=== PATIENT | female | born 1945 | race Caucasian/White ===

== ENCOUNTER 2017-01-12 21:32 | Inpatient (IN) | payer MEDICARE, OTHER ==
[~2017-01-12] VITALS: Ht 165.1 cm; Wt 98.5 kg
[~2017-01-12 21:32] MED LIST: ASPI-515 PO; DILT180C53 PO; FLUO20CA8 PO; HYDR-3237 PO; LEVO25CA2 PO; METO-93; [UNRECOGNIZED DRUG - REMARK] PO
[2017-01-12] MEDS ORDERED: DILT240C80 PO (21:41)
[2017-01-12] MEDS ORDERED: ONDANSETRON 2MG/ML, 2ML IVPush ONE (22:00)
[2017-01-12] MEDS ORDERED: SODIUM CHLORIDE FLUSH 10ML SYR IVF ONE (22:00)
[2017-01-12] MEDS ORDERED: SODIUM CHLORIDE 0.9% 1,000ML IVBOLUS ONE (22:00)
[2017-01-12] MEDS ORDERED: ONDANSETRON 2MG/ML, 2ML ONE (22:14)
[2017-01-12 22:59] LABS: HEMATOCRIT 43.7 % (34.6-47.8); HEMOGLOBIN 14.7 g/dL (11.7-16.4)
[2017-01-12 23:07] LABS: ASPARTATE AMINO TRANSFERASE 14 U/L (15-37); BLOOD UREA NITROGEN 18 mg/dL (7-18)
[2017-01-12 23:12] LABS: IS PT STATUS REG ER OR PRE ER? YES
[2017-01-12] MEDS ORDERED: HEPARIN 5,000 UNITS/ML, 1ML IV ONE (23:30)
[2017-01-12] MEDS ORDERED: HEPARIN 25,000 UNITS/500ML PMX 500 ML IV PRN (23:30)
[2017-01-12] MEDS ORDERED: AMIODARONE 150 MG in DEXTROSE 5% 100 ML IV ONE (23:30)
[2017-01-12] MEDS ORDERED: AMIODARONE 900 MG in DEXTROSE 5% 482 ML IV PRN (23:30)
[2017-01-12] MEDS ORDERED: FILTER 0.22 MICRON IV PRN (23:30)
[2017-01-12] MEDS ORDERED: HEPARIN 5,000 UNITS/ML, 1ML IV PRN (23:30)
[2017-01-13] MEDS ORDERED: TEMAZEPAM 15 MG CAPSULE PO PRN (00:30)
[2017-01-13] MEDS ORDERED: POLYETHYLENE GLYCOL 17 GM PACKET PO PRN (00:30)
[2017-01-13] MEDS ORDERED: ACETAMINOPHEN 325 MG TABLET PO PRN (00:30)
[2017-01-13 01:16] VITALS: BP 134/74
[2017-01-13 02:00] VITALS: BP 98/62
[2017-01-13 06:36] LABS: IS PT STATUS REG ER OR PRE ER? NO
[2017-01-13] MEDS: DILTIAZEM 240 MG CAP.ER.24H PO SCH (08:10)
[2017-01-13] MEDS: LEVOTHYROXINE 25 MCG TABLET PO SCH (08:11)
[2017-01-13 08:29] VITALS: BP 114/70
[2017-01-13] MEDS ORDERED: MIDAZOLAM 1 MG/ML, 5ML ONE (09:55)
[2017-01-13] MEDS ORDERED: FENTANYL PF 100 MCG/2ML ONE (09:56)
[2017-01-13] MEDS ORDERED: MIDAZOLAM 1 MG/ML, 2ML IV ONE (10:00)
[2017-01-13] MEDS ORDERED: FENTANYL PF 100 MCG/2ML IV ONE (10:00)
[2017-01-13] MEDS: APIXABAN 5 MG TABLET PO SCH ×2 (11:46→20:31)
[2017-01-13 11:47] LABS: IS PT STATUS REG ER OR PRE ER? NO
[2017-01-13 13:14] VITALS: BP 118/73
[2017-01-13 19:50] VITALS: BP 128/55
[2017-01-14 04:19] VITALS: BP 132/59
[2017-01-14 05:14] LABS: HEMATOCRIT 39.7 % (34.6-47.8); HEMOGLOBIN 13.4 g/dL (11.7-16.4); WHITE BLOOD COUNT 5.6 x10^3/uL (3.4-10)
[2017-01-14 05:18] LABS: BLOOD UREA NITROGEN 14 mg/dL (7-18)
[2017-01-14] MEDS: LEVOTHYROXINE 25 MCG TABLET PO SCH (06:16)
[2017-01-14] MEDS: APIXABAN 5 MG TABLET PO SCH (07:58)
[2017-01-14 07:59] VITALS: BP 137/78
[2017-01-14] MEDS: DILTIAZEM 240 MG CAP.ER.24H PO SCH (08:57)
[2017-01-14] MEDS ORDERED: APIX5TAB PO (13:14)
[2017-01-14 15:31] VITALS: BP 117/68
== END 2017-01-14 15:42 | disposition home or self-care (01) | DRG 309 ==
LOC: ED 22:39 → EDIP 23:27 → 5SO 01-13 00:28
PROVIDERS: ADMIT Internal Medicine; ATTEND Internal Medicine
PROC: 5A2204Z Restoration of Cardiac Rhythm, Single (ICD-10-PCS; principal; 2017-01-13)
DX: I48.0 Paroxysmal atrial fibrillation (principal); D68.69 Other thrombophilia; I11.9 Hypertensive heart disease without heart failure; F33.0 Major depressive disorder, recurrent, mild; I45.10 Unspecified right bundle-branch block; E03.9 Hypothyroidism, unspecified; Z80.9 Family history of malignant neoplasm, unspecified; Z90.10 Acquired absence of unspecified breast and nipple; Z90.2 Acquired absence of lung [part of]; Z88.6 Allergy status to analgesic agent; Z88.2 Allergy status to sulfonamides; Z88.8 Allergy status to other drugs, medicaments and biological substances; Z85.118 Personal history of other malignant neoplasm of bronchus and lung; Z85.3 Personal history of malignant neoplasm of breast; Z87.891 Personal history of nicotine dependence
CPT/HCPCS: 36415; 71020; 80048; 80053; 84436; 84443; 84484; 85025; 85379; 85520; 93005; 93306; 96361; 96374; 96375; J1644; J2250; J2405; J3010; J0282; J7030

== ENCOUNTER → 2017-01-31 | Outpatient (CLI) | payer MEDICARE, OTHER ==
[~2017-01-31] MED LIST changes: +APIX5TAB PO; +DILT240C80 PO; +REGADENOSON 0.4 MG/5 ML SYRINGE ONE
== END | disposition home or self-care (01) ==
LOC: CFH 08:30
PROVIDERS: ATTEND Internal Medicine Cardiovascular Disease
DX: I48.91 Unspecified atrial fibrillation (principal); I10 Essential (primary) hypertension; R07.9 Chest pain, unspecified
CPT/HCPCS: 78452; 93017; A9502; J2785

== ENCOUNTER 2017-05-25 06:18 | Observation (INO) | payer MEDICARE, OTHER ==
[2017-05-22 10:20] VITALS: BP 148/69
[2017-05-22 10:53] LABS: BASOPHILS # (AUTO) 0.02 x10^3/uL (0-0.1); BASOPHILS % (AUTO) 0 % (0-1); EOSINOPHILS # (AUTO) 0.06 x10^3/uL (0-0.4); EOSINOPHILS % (AUTO) 1 % (1-7); LYMPHOCYTES # (AUTO) 1.59 x10^3/uL (1-3.4); LYMPHOCYTES % (AUTO) 25 % (22-44); MD NO; MEAN CORPUSCULAR HEMOGLOBIN 33.5 pg (27.0-34.8); MEAN CORPUSCULAR HGB CONC 33.7 g/dL (32.4-35.8); MEAN CORPUSCULAR VOLUME 99.4 fL (80-100); MEAN PLATELET VOLUME 8.2 fL (7.4-10.4); MONOCYTES # (AUTO) 0.35 x10^3/uL (0.2-0.8); MONOCYTES % (AUTO) 6 % (2-9); NEUTROPHILS # (AUTO) 4.33 x10^3/uL (1.8-6.8); NEUTROPHILS % (AUTO) 68 % (42-75); PLATELET COUNT 255 x10^3/uL (130-400); RED CELL DISTRIBUTION WIDTH 13.2 % (9.6-15.2)
[2017-05-22 11:02] LABS: INTERNATIONAL NORMALIZED RATIO 0.93 (0.93-1.1); PROTHROMBIN TIME 9.7 Seconds (9.6-11.5)
[2017-05-22 11:06] LABS: ANION GAP 5 mmol/L (5-15); CALCIUM 8.9 mg/dL (8.5-10.1); CHLORIDE 106 mmol/L (98-107); CREATININE 0.97 mg/dL (0.55-1.02)
[~2017-05-25] VITALS: Ht 165.1 cm; Wt 83.9 kg
[~2017-05-25 06:18] MED LIST changes: +B12/1TAB2 PO; +CYAN1TAB29 PO; +DILT120T4 PO; +FLUO20TA PO; +LEVO75TA PO; -REGADENOSON 0.4 MG/5 ML SYRINGE ONE
[2017-05-25] MEDS ORDERED: SODIUM CHLORIDE 0.9% 1,000 ML IV SCH (06:32)
[2017-05-25] MEDS ORDERED: FENTANYL PF 100 MCG/2ML ONE (06:38)
[2017-05-25] MEDS ORDERED: MIDAZOLAM 1 MG/ML, 2ML ONE ×2 (06:38→07:24)
[2017-05-25] MEDS ORDERED: CEFAZOLIN PMX 1GM/50ML 50 ML ONE (06:38)
[2017-05-25] MEDS ORDERED: CEFAZOLIN 1,000 MG ONE (06:38)
[2017-05-25] MEDS ORDERED: LIDOCAINE 2%, 20ML ONE (06:38)
[2017-05-25] MEDS ORDERED: CEFAZOLIN PMX 1GM/50ML 50 ML IVPB ONE (07:00)
[2017-05-25] MEDS ORDERED: BISACODYL 10 MG SUPP PR PRN ×2 (10:30→11:00)
[2017-05-25] MEDS ORDERED: ZOLPIDEM 5MG TABLET PO PRN ×2 (10:30→11:00)
[2017-05-25] MEDS ORDERED: ONDANSETRON 2MG/ML, 2ML IV PRN ×2 (10:30→11:00)
[2017-05-25] MEDS ORDERED: BISACODYL 5 MG EC TABLET PO PRN ×2 (10:30→11:00)
[2017-05-25] MEDS: SOTALOL 120MG TABLET PO SCH ×2 (10:38→20:01)
[2017-05-25] MEDS ORDERED: ACETAMINOPHEN 325 MG TABLET PO PRN (11:00)
[2017-05-25] MEDS ORDERED: CEFAZOLIN PMX 1GM/50ML 50 ML IVPB SCH (12:00)
[2017-05-25] MEDS: CEFAZOLIN PMX 1GM/50ML 50 ML IVPB SCH ×2 (12:37→18:18)
[2017-05-25 13:25] VITALS: BP 99/61
[2017-05-25 19:13] VITALS: BP 112/68
[2017-05-25] MEDS: SODIUM CHLORIDE FLUSH 10ML SYR IVF SCH (20:01)
[2017-05-26 00:10] VITALS: BP 114/73
[2017-05-26] MEDS: CEFAZOLIN PMX 1GM/50ML 50 ML IVPB SCH (00:25)
[2017-05-26] MEDS: ACETAMINOPHEN 325 MG TABLET PO PRN ×2 (00:30→08:54)
[2017-05-26] MEDS ORDERED: LEVOTHYROXINE 75 MCG TABLET PO SCH (06:00)
[2017-05-26 06:15] VITALS: BP 114/75
[2017-05-26] MEDS: LEVOTHYROXINE 75 MCG TABLET PO SCH (06:19)
[2017-05-26] MEDS: SOTALOL 120MG TABLET PO SCH ×2 (06:19→18:01)
[2017-05-26 07:20] VITALS: BP 116/70
[2017-05-26] MEDS: SODIUM CHLORIDE FLUSH 10ML SYR IVF SCH ×2 (08:54→21:13)
[2017-05-26 13:19] VITALS: BP 109/55
[2017-05-26 19:37] VITALS: BP 103/63
[2017-05-27 03:28] VITALS: BP 120/85
[2017-05-27 06:27] VITALS: BP 116/75
[2017-05-27] MEDS: LEVOTHYROXINE 75 MCG TABLET PO SCH (06:30)
[2017-05-27] MEDS: SOTALOL 120MG TABLET PO SCH (06:30)
[2017-05-27 07:06] VITALS: BP 128/83
[2017-05-27] MEDS: SODIUM CHLORIDE FLUSH 10ML SYR IVF SCH (08:32)
[2017-05-27] MEDS ORDERED: SOTA120T14 PO (08:33)
[2017-05-27] MEDS ORDERED: APIX5TAB PO (08:33)
== END 2017-05-27 14:05 | disposition home or self-care (01) ==
LOC: CACL 06:18 → 5SO 08:45 → CACL 10:09
PROVIDERS: ADMIT Internal Medicine Cardiovascular Disease; ATTEND Internal Medicine Cardiovascular Disease
DX: I49.5 Sick sinus syndrome (principal); I48.0 Paroxysmal atrial fibrillation; J44.9 Chronic obstructive pulmonary disease, unspecified; I74.5 Embolism and thrombosis of iliac artery; I10 Essential (primary) hypertension; E78.5 Hyperlipidemia, unspecified; E03.9 Hypothyroidism, unspecified; G47.36 Sleep related hypoventilation in conditions classified elsewhere; Z90.12 Acquired absence of left breast and nipple; Z87.891 Personal history of nicotine dependence; Z85.3 Personal history of malignant neoplasm of breast; Z85.118 Personal history of other malignant neoplasm of bronchus and lung
CPT/HCPCS: 33208; 36415; 71045; 71046; 80048; 85025; 85610; 93005; 96365; 96366; 96375; 99156; 99157; C1779; C1785; C1892; G0378; J0690; J2250; J3010; J3490

== ENCOUNTER 2017-07-04 10:31 | Day surgery (SDC) | payer MEDICARE, OTHER ==
[~2017-07-04] VITALS: Ht 165.1 cm; Wt 84.1 kg
[~2017-07-04 10:31] MED LIST changes: +SOTA120T14 PO
[2017-07-04 10:55] VITALS: BP 151/89
[2017-07-04] MEDS ORDERED: SOTA160T PO (11:08)
[2017-07-04 11:12] LABS: BASOPHILS # (AUTO) 0.02 x10^3/uL (0-0.1); BASOPHILS % (AUTO) 0 % (0-1); EOSINOPHILS # (AUTO) 0.04 x10^3/uL (0-0.4); EOSINOPHILS % (AUTO) 1 % (1-7); LYMPHOCYTES # (AUTO) 1.19 x10^3/uL (1-3.4); LYMPHOCYTES % (AUTO) 25 % (22-44); MD NO; MEAN CORPUSCULAR HEMOGLOBIN 33.3 pg (27.0-34.8); MEAN CORPUSCULAR HGB CONC 34.1 g/dL (32.4-35.8); MEAN CORPUSCULAR VOLUME 97.7 fL (80-100); MEAN PLATELET VOLUME 8.4 fL (7.4-10.4); MONOCYTES # (AUTO) 0.28 x10^3/uL (0.2-0.8); MONOCYTES % (AUTO) 6 % (2-9); NEUTROPHILS % (AUTO) 68 % (42-75); PLATELET COUNT 198 x10^3/uL (130-400); RED BLOOD COUNT 4.19 x10^6/uL (3.82-5.3); RED CELL DISTRIBUTION WIDTH 13.4 % (9.6-15.2)
[2017-07-04 11:23] LABS: ALANINE AMINOTRANSFERASE 17 U/L (12-78); ALBUMIN 3.7 g/dL (3.4-5.0); ANION GAP 9 mmol/L (5-15); CALCIUM 8.5 mg/dL (8.5-10.1); CHLORIDE 109 mmol/L (98-107); CREATININE 1.06 mg/dL (0.55-1.02)
[2017-07-04 11:25] LABS: ALKALINE PHOSPHATASE 50 U/L (45-117); BILIRUBIN,TOTAL 0.8 mg/dL (0.2-1.0); TOTAL PROTEIN 6.8 g/dL (6.4-8.2)
[2017-07-04] MEDS ORDERED: PROPOFOL 10 MG/ML, 20ML ONE (11:55)
== END 2017-07-04 12:48 ==
LOC: CACL 10:31
PROVIDERS: ATTEND Internal Medicine Cardiovascular Disease
DX: I48.91 Unspecified atrial fibrillation (principal); I10 Essential (primary) hypertension; Z98.890 Other specified postprocedural states; Z90.12 Acquired absence of left breast and nipple
CPT/HCPCS: 36415; 71046; 80053; 85025; 92960; J2704

== ENCOUNTER → 2017-11-21 | Outpatient (CLI) | payer MEDICARE, OTHER ==
[~2017-11-21] MED LIST changes: +SOTA160T PO
== END | disposition home or self-care (01) ==
LOC: CVU 06:39
PROVIDERS: ATTEND Internal Medicine Critical Care Medicine
DX: I34.0 Nonrheumatic mitral (valve) insufficiency (principal); I48.91 Unspecified atrial fibrillation; I10 Essential (primary) hypertension; E78.5 Hyperlipidemia, unspecified; Z79.82 Long term (current) use of aspirin; Z85.3 Personal history of malignant neoplasm of breast; Z85.118 Personal history of other malignant neoplasm of bronchus and lung
CPT/HCPCS: 93306

== ENCOUNTER → 2017-12-20 | Outpatient (CLI) | payer MEDICARE, OTHER ==
[~2017-12-20] MED LIST changes: +OMNIPAQUE 350 MG/ML, 100ML BOTTLE ONE
== END | disposition home or self-care (01) ==
LOC: CFH 11:52
PROVIDERS: ATTEND Internal Medicine Critical Care Medicine
DX: J43.9 Emphysema, unspecified (principal); J98.4 Other disorders of lung; Z90.12 Acquired absence of left breast and nipple; Z87.891 Personal history of nicotine dependence; Z85.3 Personal history of malignant neoplasm of breast; Z85.118 Personal history of other malignant neoplasm of bronchus and lung; Z88.2 Allergy status to sulfonamides
CPT/HCPCS: 71275; Q9967

== ENCOUNTER 2018-09-29 14:46 | Emergency (ER) | payer MEDICARE, OTHER ==
[~2018-09-29] VITALS: Ht 165.1 cm; Wt 89.1 kg
[~2018-09-29 14:46] MED LIST changes: -OMNIPAQUE 350 MG/ML, 100ML BOTTLE ONE
[2018-09-29 15:22] LABS: BASOPHILS # (AUTO) 0.02 x10^3/uL (0-0.1); BASOPHILS % (AUTO) 0 % (0-1); EOSINOPHILS # (AUTO) 0.07 x10^3/uL (0-0.4); EOSINOPHILS % (AUTO) 1 % (1-7); LYMPHOCYTES # (AUTO) 1.63 x10^3/uL (1-3.4); LYMPHOCYTES % (AUTO) 28 % (22-44); MD NO; MEAN CORPUSCULAR HEMOGLOBIN 32.6 pg (27.0-34.8); MEAN CORPUSCULAR HGB CONC 33.2 g/dL (32.4-35.8); MEAN PLATELET VOLUME 8.1 fL (7.4-10.4); MONOCYTES # (AUTO) 0.38 x10^3/uL (0.2-0.8); MONOCYTES % (AUTO) 6 % (2-9); NEUTROPHILS # (AUTO) 3.81 x10^3/uL (1.8-6.8); NEUTROPHILS % (AUTO) 64 % (42-75); PLATELET COUNT 191 x10^3/uL (130-400); RED BLOOD COUNT 4.01 x10^6/uL (3.82-5.3); RED CELL DISTRIBUTION WIDTH 13.5 % (9.6-15.2)
[2018-09-29 15:23] LABS: ALBUMIN 3.9 g/dL (3.4-5.0); ANION GAP 5 mmol/L (5-15); CALCIUM 8.6 mg/dL (8.5-10.1); CHLORIDE 106 mmol/L (98-107)
[2018-09-29 15:27] LABS: TROPONIN I < 0.015 ng/mL (0.000-0.045)
[2018-09-29] MEDS ORDERED: PROPOFOL 10 MG/ML, 20ML IVPush ONE (15:30)
[2018-09-29] MEDS ORDERED: PROPOFOL 10 MG/ML, 20ML ONE (15:35)
--- NOTE | 2018-09-29 15:45 | NUR ---
THIS IS A 73 YO FEMALE WHO PRESENTS TO THE ER C/O CHEST DISCOMFORT DESCRIBED HEAVY AND RATED 2/10, PALPITATIONS AND SOB SINCE APPROX 1300. PT HAS HX OF AFIB AND IS IN AFIV IN THE ER 90'S-110'S. PT AO X 4. PT ABLE TO SPEAK IN FULL 7-10 WORD SENTENCES BUT FEELS SOB. PT ON 2L NC HOME O2 AT ALL TIMES. SKIN PWD. AT BEDSIDE. WILL CONT TO MONITOR PT.
--- NOTE | 2018-09-29 16:11 | NUR ---
Lunch break RN: Pt set up for cardioversion. Cardiac, NIBP, SPO2 & ETCO2 monitors IP.
--- NOTE | 2018-09-29 16:42 | NUR ---
REPORT FROM KIRAN MORALES AND KIRAN BECKER. PT RESTING IN ROOM, BEING MONITORED BY KIRAN MORALES. VSS. PLAN TO DC HOME.
--- NOTE | 2018-09-29 16:43 | NUR ---
Late entry: procedural sedation w/ electrical cardioversion performed on pt. Received 2 synchronized shocks 150 then 200. Converted after second shock. Propofol 80mg IV administered by ER physician. Pt currently pain free, HR 60, paced, A&O x4. See procedural sedation paperwork for procedural notes/VS.
--- NOTE | 2018-09-29 16:45 | NUR ---
REPORT TO KIRAN FREY WHO ASSUMED CARE OF PT.
--- NOTE | 2018-09-29 17:00 | NUR ---
Lunch break RN: Pt is awake, resting comfortably, VSS, paced 60 pain free, fluids/blanket offered, declines.
--- NOTE | 2018-09-29 17:36 | NUR ---
Patient given discharge instructions and they have confirmed that they understand the instructions. Patient ambulatory with steady gait.
[2018-09-29 17:37] VITALS: BP 179/64
== END 2018-09-29 17:43 | disposition home or self-care (01) ==
LOC: ED 17:37
DX: I48.0 Paroxysmal atrial fibrillation (principal); I10 Essential (primary) hypertension; F32.9 Major depressive disorder, single episode, unspecified; E07.9 Disorder of thyroid, unspecified; Z90.10 Acquired absence of unspecified breast and nipple; Z87.891 Personal history of nicotine dependence
CPT/HCPCS: 36415; 71046; 80048; 82040; 84484; 85025; 92960; 93005; 99291; J2704; 99152

== ENCOUNTER 2018-12-29 13:20 | Emergency (ER) | payer MEDICARE, OTHER ==
[~2018-12-29] VITALS: Ht 165.1 cm; Wt 88.0 kg
--- NOTE | 2018-12-29 13:40 | NUR ---
MD AT BEDSIDE TO ASSESS PT
--- NOTE | 2018-12-29 13:46 | NUR ---
THIS IS AA 73 YO FEMALE THAT CAME IN FOR PALP AND TIGHTNESS IN HER CHEST. SHE HAS A HX OF AFIB AND CARDIOVERSION. LAST CARDIOVERSION WAS SEPTEMBER 2018. PT IS RESTING ON GURNEY AT BEDSIDE. PT IS ABLE TO SPEAK IN FULL SENTENCES AND IS CONVERSING APPROPRIATELY WITH STAFF AND FAMILY. PT CONNECTED TO ALL MONITORS VSS. CALL LIGHT IN REACH. NO FURTHER NEEDS EXPRESSED AT THIS TIME.
[2018-12-29] MEDS ORDERED: SODIUM CHLORIDE FLUSH 10ML SYR IVF ONE (14:00)
[2018-12-29 14:01] LABS: BASOPHILS # (AUTO) 0.03 x10^3/uL (0-0.1); BASOPHILS % (AUTO) 0 % (0-1); EOSINOPHILS # (AUTO) 0.14 x10^3/uL (0-0.4); EOSINOPHILS % (AUTO) 2 % (1-7); LYMPHOCYTES # (AUTO) 1.78 x10^3/uL (1-3.4); LYMPHOCYTES % (AUTO) 23 % (22-44); MD NO; MEAN CORPUSCULAR HEMOGLOBIN 33.5 pg (27.0-34.8); MEAN CORPUSCULAR HGB CONC 32.9 g/dL (32.4-35.8); MEAN CORPUSCULAR VOLUME 101.7 fL (80-100); MEAN PLATELET VOLUME 7.5 fL (7.4-10.4); MONOCYTES # (AUTO) 0.35 x10^3/uL (0.2-0.8); MONOCYTES % (AUTO) 5 % (2-9); NEUTROPHILS # (AUTO) 5.38 x10^3/uL (1.8-6.8); NEUTROPHILS % (AUTO) 70 % (42-75); PLATELET COUNT 208 x10^3/uL (130-400); RED BLOOD COUNT 4.23 x10^6/uL (3.82-5.3); RED CELL DISTRIBUTION WIDTH 14.8 % (9.6-15.2)
--- NOTE | 2018-12-29 14:01 | NUR ---
IV STARTED. PT RESTING ON [address] [employer] TALKING TO AT THIS TIME. HR STILL IRREGULAR 90'S- LOW 100'S.
[2018-12-29 14:13] LABS: ALBUMIN 3.9 g/dL (3.4-5.0); ANION GAP 9 mmol/L (5-15); CALCIUM 8.8 mg/dL (8.5-10.1); CHLORIDE 103 mmol/L (98-107); CREATININE 0.95 mg/dL (0.55-1.02)
[2018-12-29 14:17] LABS: TROPONIN I < 0.015 ng/mL (0.000-0.045)
[2018-12-29] MEDS ORDERED: PROPOFOL 10 MG/ML, 20ML ONE (14:45)
--- NOTE | 2018-12-29 14:59 | NUR ---
AT BEDSIDE, SUCCESSFUL CARDIOVERSION COMPLETED WITH ONE SHOCK AT 200J. PT RESPODING WELL TO PROCEEDURAL SEDATION. VSS STABLE 164/63
[2018-12-29] MEDS ORDERED: PROPOFOL 10 MG/ML, 20ML IVPush ONE (15:30)
--- NOTE | 2018-12-29 15:32 | NUR ---
TASK RN: PT SITTING UP IN [place] SANCHEZ NOTED. RESPIRATIONS EVEN/UNLABORED. PT PWD. DENIES CP/SOB. REPEAT EKG COMPLETED BY RN, NSR W/ POSSIBLE RBBB. CHART UP FOR RECHECK.
[2018-12-29 16:00] VITALS: BP 168/62
--- NOTE | 2018-12-29 16:01 | NUR ---
Patient/Caregiver given discharge instructions and they have confirmed that they understand the instructions. Patient ambulatory with steady gait.
== END 2018-12-29 16:00 | disposition home or self-care (01) ==
LOC: ED 15:18
DX: R07.2 Precordial pain (principal); I48.2 Chronic atrial fibrillation
CPT/HCPCS: 36415; 80048; 82040; 83880; 84484; 85025; 92960; 93005; 99152; 99285

== ENCOUNTER 2019-02-11 13:04 | Emergency (ER) | payer MEDICARE, OTHER ==
[~2019-02-11] VITALS: Ht 165.1 cm; Wt 88.1 kg
--- NOTE | 2019-02-11 13:30 | NUR ---
PT STATES SHE IS IN AFIB, SHE TOOK HER SOTOLOL THIS MORNING AND SHE HAS NOT POPPED OUT OF IT. SHE IS EXPERIENCING SOB/CP. PT TO NIBP, CONT PULSE OX, CARD MONITOR. ERMD IN TO EVAL PT. PIV INITATED, AWAITING ORDERS
[2019-02-11] MEDS ORDERED: SODIUM CHLORIDE FLUSH 10ML SYR IVF ONE (14:00)
[2019-02-11 14:01] LABS: BASOPHILS # (AUTO) 0.04 x10^3/uL (0-0.1); BASOPHILS % (AUTO) 1 % (0-1); EOSINOPHILS % (AUTO) 2 % (1-7); LYMPHOCYTES # (AUTO) 1.58 x10^3/uL (1-3.4); LYMPHOCYTES % (AUTO) 27 % (22-44); MD NO; MEAN CORPUSCULAR HEMOGLOBIN 33.4 pg (27.0-34.8); MEAN CORPUSCULAR VOLUME 101.4 fL (80-100); MONOCYTES # (AUTO) 0.34 x10^3/uL (0.2-0.8); MONOCYTES % (AUTO) 6 % (2-9); NEUTROPHILS # (AUTO) 3.77 x10^3/uL (1.8-6.8); NEUTROPHILS % (AUTO) 65 % (42-75); PLATELET COUNT 198 x10^3/uL (130-400); RED CELL DISTRIBUTION WIDTH 13.9 % (9.6-15.2)
[2019-02-11 14:11] LABS: ALBUMIN 3.9 g/dL (3.4-5.0); ANION GAP 7 mmol/L (5-15); CALCIUM 8.7 mg/dL (8.5-10.1); CHLORIDE 108 mmol/L (98-107); CREATININE 0.94 mg/dL (0.55-1.02)
[2019-02-11 14:15] LABS: TROPONIN I < 0.015 ng/mL (0.000-0.045)
[2019-02-11] MEDS ORDERED: PROPOFOL 10 MG/ML, 20ML ONE (14:26)
--- NOTE | 2019-02-11 14:33 | NUR ---
PREPARING PT FOR CARDIOVERSION.
--- NOTE | 2019-02-11 14:57 | NUR ---
task RN note: pt and MD signed informed consent for cardioversion with procedural sedation. MD informed pt is not on anticoagulants, pt confirmed onset of afib was this am at 0430, per MD cardioversion is not contraindicated as pt is within 48hr window of afib onset. pt attached to all monitors for procedural sedation. crash cart and all supplies at bedside. pt given 40mg propofol by MD Guerrero at 1436, 20mg propofol admin by at 1438, 20 mg propofol admin by MD at 1440. Total 80 mg propofol admin by MD during procedure. pt cardioverted with 200J at 1441. Pt now has HR 60, NSR, paced (internal pacemaker present) on awake overnight monitor with no ectopy. Repeat EKG taken by EDT. pt is 99% on 2L/min oxygen via NC which she wears at baseline. pt is a&ox4, resps even and unlabored. pt denies nausea, pt denies pain. pt able to speak in full sentences, no complaint at this time. see paper charting for intraprocedure vital signs and sedation score. pt tolerated procedure well. report given to primary RN Magali. Pt's at bedside at this time.
[2019-02-11] MEDS ORDERED: PROPOFOL 10 MG/ML, 20ML IVPush ONE (15:00)
[2019-02-11 15:55] VITALS: BP 156/62
--- NOTE | 2019-02-11 15:56 | NUR ---
PT REMAINS STABLE S/P CARDIOVERSION, REMAINS 100% PACED 60S. PT PLACED FOR RECHECK
--- NOTE | 2019-02-11 16:47 | NUR ---
Patient/Caregiver given discharge instructions and they have confirmed that they understand the instructions. Patient ambulatory with steady gait.
== END 2019-02-11 16:50 | disposition home or self-care (01) ==
LOC: ED 16:49
DX: I48.0 Paroxysmal atrial fibrillation (principal); I10 Essential (primary) hypertension; Z87.891 Personal history of nicotine dependence; Z95.0 Presence of cardiac pacemaker; Z85.3 Personal history of malignant neoplasm of breast; Z85.118 Personal history of other malignant neoplasm of bronchus and lung; Z88.8 Allergy status to other drugs, medicaments and biological substances; Z88.1 Allergy status to other antibiotic agents; Z88.2 Allergy status to sulfonamides
CPT/HCPCS: 36415; 71045; 80048; 82040; 83880; 84484; 85025; 92960; 93005; 99291

== ENCOUNTER → 2019-03-31 | Outpatient (CLI) | payer MEDICARE, OTHER | END | disposition home or self-care (01) | LOC: CVU 10:43 | PROVIDERS: ATTEND Nurse Practitioner Family | DX: I08.3 Combined rheumatic disorders of mitral, aortic and tricuspid valves (principal); I48.91 Unspecified atrial fibrillation; Z95.0 Presence of cardiac pacemaker | CPT/HCPCS: 93306 ==

== ENCOUNTER 2019-05-06 01:22 | Emergency (ER) | payer MEDICARE, OTHER ==
[~2019-05-06] VITALS: Ht 165.1 cm; Wt 90.6 kg
[2019-05-06 01:53] LABS: BASOPHILS # (AUTO) 0.06 x10^3/uL (0-0.1); BASOPHILS % (AUTO) 1 % (0-1); EOSINOPHILS # (AUTO) 0.15 x10^3/uL (0-0.4); EOSINOPHILS % (AUTO) 2 % (1-7); LYMPHOCYTES # (AUTO) 2.86 x10^3/uL (1-3.4); LYMPHOCYTES % (AUTO) 43 % (22-44); MD NO; MEAN CORPUSCULAR HEMOGLOBIN 32.5 pg (27.0-34.8); MEAN CORPUSCULAR HGB CONC 32.9 g/dL (32.4-35.8); MEAN CORPUSCULAR VOLUME 98.7 fL (80-100); MEAN PLATELET VOLUME 7.9 fL (7.4-10.4); MONOCYTES # (AUTO) 0.45 x10^3/uL (0.2-0.8); MONOCYTES % (AUTO) 7 % (2-9); NEUTROPHILS # (AUTO) 3.13 x10^3/uL (1.8-6.8); NEUTROPHILS % (AUTO) 47 % (42-75); PLATELET COUNT 207 x10^3/uL (130-400); RED BLOOD COUNT 3.95 x10^6/uL (3.82-5.3); RED CELL DISTRIBUTION WIDTH 13.5 % (9.6-15.2)
[2019-05-06] MEDS ORDERED: PROPOFOL 10 MG/ML, 20ML ONE (01:55)
[2019-05-06] MEDS ORDERED: SODIUM CHLORIDE FLUSH 10ML SYR IVF ONE (02:00)
[2019-05-06] MEDS ORDERED: PROPOFOL 10 MG/ML, 20ML IVPush ONE (02:00)
[2019-05-06] MEDS ORDERED: DILTIAZEM 5 MG/ML, 5ML IV ONE (02:00)
[2019-05-06 02:01] LABS: INTERNATIONAL NORMALIZED RATIO 0.93 (0.93-1.1); PROTHROMBIN TIME 9.8 Seconds (9.6-11.5)
[2019-05-06 02:02] LABS: ALANINE AMINOTRANSFERASE 21 U/L (12-78); ALBUMIN 3.7 g/dL (3.4-5.0); ANION GAP 9 mmol/L (5-15); CALCIUM 8.8 mg/dL (8.5-10.1); CHLORIDE 107 mmol/L (98-107)
[2019-05-06 02:07] LABS: ALKALINE PHOSPHATASE 53 U/L (45-117); BILIRUBIN,TOTAL 0.5 mg/dL (0.2-1.0); T4 (THYROXINE) 7.4 mcg/dL (4.8-13.9); TOTAL PROTEIN 7.2 g/dL (6.4-8.2); TROPONIN I < 0.015 ng/mL (0.000-0.045)
--- NOTE | 2019-05-06 02:27 | NUR ---
PT RECEIVED SYNCHRONIZED CARDIOVERSION BY DR. ESCALERA. PT TOLERATED WELL. PT DROWSY BUT AWAKE AT THIS TIME, AOX4, MOVES ALL 4 EXTREMITIES. FAMILY AT FOR SUPPORT.
[2019-05-06] MEDS ORDERED: POTASSIUM CHLORIDE 20 MEQ TAB.ER.PRT PO ONE (02:30)
[2019-05-06] MEDS ORDERED: POTASSIUM CHLORIDE 20 MEQ TAB.ER.PRT ONE (02:41)
--- NOTE | 2019-05-06 02:45 | NUR ---
SEE PAPERCHARTING FOR SYNCHRONIZED CARDIOVERSION AND PROCEDURAL SEDATION MEDICATIONS AND VS.
[2019-05-06 03:27] VITALS: BP 140/60
--- NOTE | 2019-05-06 03:28 | NUR ---
Patient/Caregiver given discharge instructions and they have confirmed that they understand the instructions. Patient ambulatory with steady gait.
== END 2019-05-06 03:35 | disposition home or self-care (01) ==
LOC: ED 02:40
DX: I48.91 Unspecified atrial fibrillation (principal); R00.2 Palpitations; R07.89 Other chest pain; I10 Essential (primary) hypertension; Z86.39 Personal history of other endocrine, nutritional and metabolic disease; Z87.891 Personal history of nicotine dependence; Z90.10 Acquired absence of unspecified breast and nipple
CPT/HCPCS: 36415; 71045; 80053; 83880; 84436; 84443; 84484; 85025; 85610; 85730; 92960; 93005; 99291; J2704

== ENCOUNTER 2019-05-31 08:56 | Emergency (ER) | payer MEDICARE, OTHER ==
[~2019-05-31] VITALS: Ht 165.1 cm; Wt 87.9 kg
[~2019-05-31 08:56] MED LIST changes: +FLUO20CA23 PO; -FLUO20CA8 PO
--- NOTE | 2019-05-31 09:26 | NUR ---
pt presents to ED with c/o palptations and sob onset at 0700 this am, hx afib with rvr. pt states "I've been cardioverted 5 times in the last 13 months. pt denies cp. EKG taken in triage, pt attached to all monitors. pt a&ox4, rsps even and unlabored, able to speak in full sentences without difficulty. pt seen and examined by everardo martino. awaiitng labs and cxr results at this time.
[2019-05-31] MEDS ORDERED: DILTIAZEM 5 MG/ML, 5ML IVPush ONE (09:30)
[2019-05-31] MEDS ORDERED: HEPARIN 5,000 UNITS/ML, 1ML IV ONE (10:00)
[2019-05-31] MEDS ORDERED: HEPARIN 25,000 UNITS/250ML PMX 250 ML IV PRN (10:00)
[2019-05-31] MEDS ORDERED: HEPARIN 5,000 UNITS/ML, 1ML IV PRN (10:00)
--- NOTE | 2019-05-31 10:05 | NUR ---
DILTIAZEM NOT IN ED OMNICELL, REQUESTED FROM PHARMACY.
[2019-05-31 10:10] LABS: BASOPHILS # (AUTO) 0.03 x10^3/uL (0-0.1); BASOPHILS % (AUTO) 0 % (0-1); EOSINOPHILS # (AUTO) 0.12 x10^3/uL (0-0.4); EOSINOPHILS % (AUTO) 2 % (1-7); LYMPHOCYTES # (AUTO) 1.86 x10^3/uL (1-3.4); LYMPHOCYTES % (AUTO) 24 % (22-44); MD NO; MEAN CORPUSCULAR HEMOGLOBIN 32.4 pg (27.0-34.8); MEAN CORPUSCULAR HGB CONC 33.4 g/dL (32.4-35.8); MEAN CORPUSCULAR VOLUME 97.2 fL (80-100); MEAN PLATELET VOLUME 8.4 fL (7.4-10.4); MONOCYTES # (AUTO) 0.31 x10^3/uL (0.2-0.8); MONOCYTES % (AUTO) 4 % (2-9); NEUTROPHILS # (AUTO) 5.31 x10^3/uL (1.8-6.8); NEUTROPHILS % (AUTO) 70 % (42-75); PLATELET COUNT 203 x10^3/uL (130-400)
[2019-05-31 10:22] LABS: ALBUMIN 3.4 g/dL (3.4-5.0); ANION GAP 8 mmol/L (5-15); CALCIUM 8.7 mg/dL (8.5-10.1); CHLORIDE 112 mmol/L (98-107)
[2019-05-31] MEDS ORDERED: HEPARIN 25,000 UNITS/250ML PMX 0 ML ONE (10:23)
[2019-05-31] MEDS ORDERED: HEPARIN 5,000 UNITS/ML, 1ML ONE (10:23)
[2019-05-31 10:29] LABS: CREATININE 0.97 mg/dL (0.55-1.02); TROPONIN I < 0.015 ng/mL (0.000-0.045)
[2019-05-31] MEDS ORDERED: DILTIAZEM 5 MG/ML, 10ML IVPush ONE (10:30)
--- NOTE | 2019-05-31 10:40 | NUR ---
THIS RN ADMINISTERED 10MG DILTIAZEM. 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 PT REPORTS RELIEF OF PALPITATIONS/SOB. PT A&O, RESPS EVEN AND UNLABORED. MD ESTRELLA INFORMED. RN INSTRUCTED TO HOLD REMAINDER OF DILTIAZEM DOSE AND HEPARIN BOLUS/GTT PT HAS CONVERTED.
--- NOTE | 2019-05-31 11:12 | NUR ---
REPORT RECEIVED FROM LYDIA BECK.
--- NOTE | 2019-05-31 11:14 | NUR ---
pt a&o, repss even and unlabored, nsr on cardiac cath technician without any ectopy. pt requests to be discharged. MD Calzada informed. report given to KIRAN Bradford at bedside. MD Calzada at bedside at this time.
[2019-05-31 11:45] VITALS: BP 115/64
--- NOTE | 2019-05-31 13:09 | NUR ---
Patient given discharge instructions and they have confirmed that they understand the instructions.
== END 2019-05-31 13:10 | disposition home or self-care (01) ==
LOC: ED 09:45
DX: I48.0 Paroxysmal atrial fibrillation (principal); I10 Essential (primary) hypertension; R00.0 Tachycardia, unspecified; Z86.39 Personal history of other endocrine, nutritional and metabolic disease; Z87.891 Personal history of nicotine dependence; Z90.10 Acquired absence of unspecified breast and nipple
CPT/HCPCS: 36415; 71045; 80048; 82040; 84484; 85025; 85520; 93005; 96374; 99284

== ENCOUNTER 2019-06-13 09:20 | Emergency (ER) | payer MEDICARE, OTHER ==
[~2019-06-13] VITALS: Ht 165.1 cm; Wt 90.2 kg
[2019-06-13] MEDS ORDERED: DILT180C72 PO (09:59)
[2019-06-13] MEDS ORDERED: ASPI-496 PO (09:59)
[2019-06-13 10:04] LABS: BASOPHILS # (AUTO) 0.04 x10^3/uL (0-0.1); BASOPHILS % (AUTO) 1 % (0-1); EOSINOPHILS # (AUTO) 0.08 x10^3/uL (0-0.4); EOSINOPHILS % (AUTO) 1 % (1-7); LYMPHOCYTES # (AUTO) 1.71 x10^3/uL (1-3.4); LYMPHOCYTES % (AUTO) 31 % (22-44); MD NO; MEAN CORPUSCULAR HEMOGLOBIN 32.4 pg (27.0-34.8); MEAN CORPUSCULAR HGB CONC 33.2 g/dL (32.4-35.8); MEAN CORPUSCULAR VOLUME 97.5 fL (80-100); MEAN PLATELET VOLUME 8.2 fL (7.4-10.4); MONOCYTES % (AUTO) 7 % (2-9); NEUTROPHILS # (AUTO) 3.32 x10^3/uL (1.8-6.8); NEUTROPHILS % (AUTO) 60 % (42-75); PLATELET COUNT 217 x10^3/uL (130-400); RED BLOOD COUNT 4.01 x10^6/uL (3.82-5.3); RED CELL DISTRIBUTION WIDTH 12.8 % (9.6-15.2)
--- NOTE | 2019-06-13 10:12 | NUR ---
PT SITTING IN BED. NO SIGNS OF DISTRESS. SIDERAILS UP, BELONGINGS IN REACH AND CALL LIGHT IN REACH.
[2019-06-13 10:15] LABS: ALBUMIN 3.6 g/dL (3.4-5.0); ANION GAP 6 mmol/L (5-15); CALCIUM 8.5 mg/dL (8.5-10.1); CHLORIDE 109 mmol/L (98-107)
[2019-06-13 10:22] LABS: ALANINE AMINOTRANSFERASE 16 U/L (12-78); ALKALINE PHOSPHATASE 49 U/L (45-117); BILIRUBIN,TOTAL 0.4 mg/dL (0.2-1.0); CREATININE 1.07 mg/dL (0.55-1.02); TOTAL PROTEIN 6.9 g/dL (6.4-8.2); TROPONIN I < 0.015 ng/mL (0.000-0.045)
[2019-06-13] MEDS ORDERED: DILTIAZEM 5 MG/ML, 5ML IV ONE (10:30)
[2019-06-13] MEDS ORDERED: DILTIAZEM 5 MG/ML, 5ML ONE (10:31)
--- NOTE | 2019-06-13 10:55 | NUR ---
IV INSERTED, PT TOLERATED WELL. ORDERED DILTIZEM ADMINISTERED, PT REMAINS IN AFIB AT THIS TIME.
--- NOTE | 2019-06-13 11:47 | NUR ---
PT UP TO BATHROOM, ACCOMPANIED.
--- NOTE | 2019-06-13 11:52 | NUR ---
BACK FROM BATHROOM, RESTING COMFORTABLY IN BED. AT BEDSIDE.
--- NOTE | 2019-06-13 12:29 | NUR ---
DR. DURÁN TO BEDSIDE TO TALK WITH PT ABOUT CARDIOVERSION. REPEAT EKG DONE, PT IN AFIB AFTER ORDERED MEDS ADMINISTERED.
[2019-06-13] MEDS ORDERED: PROPOFOL 10 MG/ML, 20ML ONE (12:46)
[2019-06-13] MEDS ORDERED: PROPOFOL 10 MG/ML, 20ML IVPush ONE (13:00)
--- NOTE | 2019-06-13 13:06 | NUR ---
PT CARDIOVERTED, 200J, 1 TIME, TOLERATED WELL. RETURNED TO BASELINE POST PROCEDURE.
[2019-06-13 14:43] VITALS: BP 152/58
== END 2019-06-13 14:59 | disposition home or self-care (01) ==
LOC: ED 12:01
DX: I48.0 Paroxysmal atrial fibrillation (principal); I45.10 Unspecified right bundle-branch block; Z95.0 Presence of cardiac pacemaker
CPT/HCPCS: 36415; 71045; 80053; 84443; 84484; 85025; 92960; 93005; 96374; 99285; J2704; 96372

== ENCOUNTER 2019-07-02 10:16 | Emergency (ER) | payer MEDICARE, OTHER ==
[~2019-07-02] VITALS: Ht 165.1 cm; Wt 87.2 kg
[~2019-07-02 10:16] MED LIST changes: +ASPI-496 PO; +DILT180C72 PO
[2019-07-02 11:01] LABS: BASOPHILS # (AUTO) 0.02 x10^3/uL (0-0.1); BASOPHILS % (AUTO) 0 % (0-1); EOSINOPHILS # (AUTO) 0.08 x10^3/uL (0-0.4); EOSINOPHILS % (AUTO) 2 % (1-7); LYMPHOCYTES # (AUTO) 1.66 x10^3/uL (1-3.4); LYMPHOCYTES % (AUTO) 32 % (22-44); MD NO; MEAN CORPUSCULAR HEMOGLOBIN 32.7 pg (27.0-34.8); MEAN CORPUSCULAR VOLUME 96.2 fL (80-100); MEAN PLATELET VOLUME 8.3 fL (7.4-10.4); MONOCYTES # (AUTO) 0.26 x10^3/uL (0.2-0.8); MONOCYTES % (AUTO) 5 % (2-9); NEUTROPHILS # (AUTO) 3.14 x10^3/uL (1.8-6.8); NEUTROPHILS % (AUTO) 61 % (42-75); PLATELET COUNT 241 x10^3/uL (130-400); RED CELL DISTRIBUTION WIDTH 12.7 % (9.6-15.2)
--- NOTE | 2019-07-02 11:02 | NUR ---
PT WITH C/O PALPITATIONS STARTING AT 0200 THIS AM, ACCOMPANIED WITH SOB. PT WITH HX OF AFIB, ON DILTIAZEM, NO BLOOD THINNER FOR PAST MONTH D/T PENDING COLONOSCOPY. PT DENIES CP AT THIS TIME. PT TO ALL MONITORS.
[2019-07-02 11:09] LABS: ALBUMIN 3.6 g/dL (3.4-5.0); ANION GAP 8 mmol/L (5-15); CALCIUM 8.9 mg/dL (8.5-10.1); CHLORIDE 105 mmol/L (98-107); CREATININE 1.27 mg/dL (0.55-1.02)
[2019-07-02 11:13] LABS: TROPONIN I < 0.015 ng/mL (0.000-0.045)
[2019-07-02 11:47] VITALS: BP 111/64
--- NOTE | 2019-07-02 11:49 | NUR ---
ERMD IN TO UPDATE PT ON POC. VSS, NAD NOTED AT THIS TIME
== END 2019-07-02 12:25 | disposition home or self-care (01) ==
LOC: ED 12:13
DX: I48.0 Paroxysmal atrial fibrillation (principal); I10 Essential (primary) hypertension; Z85.3 Personal history of malignant neoplasm of breast; Z87.891 Personal history of nicotine dependence; Z85.118 Personal history of other malignant neoplasm of bronchus and lung; Z95.0 Presence of cardiac pacemaker
CPT/HCPCS: 36415; 71045; 80048; 82040; 83735; 84484; 85025; 93005; 99285

== ENCOUNTER 2019-10-18 10:39 | Emergency (ER) | payer MEDICARE, OTHER ==
[~2019-10-18] VITALS: Ht 165.1 cm; Wt 88.7 kg
--- NOTE | 2019-10-18 11:15 | NUR ---
ALL MONITORS IN PLACE. PT AFIB 70s-90s. PT STATES SHE FELT PALPITATIONS STARTING IN THE MIDDLE OF THE NIGHT. DENIES CHEST PAIN OR SOB. IV STARTED AND LABS DRAWN. RV'WD POC WITH PT.
[2019-10-18 11:38] LABS: BASOPHILS # (AUTO) 0.06 x10^3/uL (0-0.1); BASOPHILS % (AUTO) 1 % (0-1); EOSINOPHILS # (AUTO) 0.06 x10^3/uL (0-0.4); EOSINOPHILS % (AUTO) 1 % (1-7); LYMPHOCYTES # (AUTO) 1.53 x10^3/uL (1-3.4); LYMPHOCYTES % (AUTO) 26 % (22-44); MD NO; MEAN CORPUSCULAR HEMOGLOBIN 31.3 pg (27.0-34.8); MEAN CORPUSCULAR HGB CONC 33.5 g/dL (32.4-35.8); MEAN CORPUSCULAR VOLUME 93.3 fL (80-100); MEAN PLATELET VOLUME 8.5 fL (7.4-10.4); MONOCYTES # (AUTO) 0.36 x10^3/uL (0.2-0.8); MONOCYTES % (AUTO) 6 % (2-9); NEUTROPHILS # (AUTO) 3.82 x10^3/uL (1.8-6.8); NEUTROPHILS % (AUTO) 66 % (42-75); PLATELET COUNT 251 x10^3/uL (130-400); RED BLOOD COUNT 4.19 x10^6/uL (3.82-5.3); RED CELL DISTRIBUTION WIDTH 13.9 % (9.6-15.2)
[2019-10-18 11:49] LABS: ALANINE AMINOTRANSFERASE 18 U/L (12-78); ALBUMIN 3.6 g/dL (3.4-5.0); ANION GAP 6 mmol/L (5-15); CALCIUM 8.4 mg/dL (8.5-10.1); CHLORIDE 108 mmol/L (98-107)
[2019-10-18 11:54] LABS: ALKALINE PHOSPHATASE 55 U/L (45-117); BILIRUBIN,TOTAL 0.8 mg/dL (0.2-1.0); TOTAL PROTEIN 7.2 g/dL (6.4-8.2); TROPONIN I < 0.015 ng/mL (0.000-0.045)
[2019-10-18] MEDS ORDERED: ETOMIDATE 20 MG/10 ML ONE (12:25)
[2019-10-18] MEDS ORDERED: FENTANYL PF 100 MCG/2ML ONE (12:25)
--- NOTE | 2019-10-18 12:30 | NUR ---
PT UNDERSTANDS PLAN FOR CARDIOVERSION WITH MODERATE SEDATION. AT BS.
[2019-10-18 12:47] LABS: INTERNATIONAL NORMALIZED RATIO 2.37 (0.93-1.1); PROTHROMBIN TIME 25.3 Seconds (9.6-11.5)
--- NOTE | 2019-10-18 12:50 | NUR ---
ERP AT TO EXPLAIN PROCEDURE TO PT. SEDATION STARTED WITH 25MCG FENTANYL. Addendum: 10/18/19 at 1742 by HBENSON SEE SEDATION FLOWSHEET FOR ADDITIONAL MEDS/DETAILS.
[2019-10-18] MEDS ORDERED: ETOMIDATE 20 MG/10 ML IVPush ONE ×2 (13:00→17:30)
[2019-10-18] MEDS ORDERED: FENTANYL PF 100 MCG/2ML IV ONE (13:00)
--- NOTE | 2019-10-18 13:05 | NUR ---
SYNCHRONIZED CARDIOVERSION DONE AT 200J, WITH PT SUCCESSFULLY CONVERTING TO SR IN 70s. ERP AT BS. PT RESPONDING TO VERBAL COMMANDS.
--- NOTE | 2019-10-18 13:15 | NUR ---
PT STABLE, BACK AT BASELINE, A&OX4. STATES SHE WILL REST FOR A LITTLE WHILE PRIOR TO DISCHARGE.
[2019-10-18 14:00] VITALS: BP 169/94
--- NOTE | 2019-10-18 14:15 | NUR ---
D/C INSTRUCTIONS, MEDS & F/U APPT RV'WD WITH PT, SHE VERBALIZES UNDERTANDING. RX GIVEN X1. PT AMBULATED OUT OF ED WITH WITHOUT DIFFICULTY.
[2019-10-18] MEDS ORDERED: FENTANYL PF 100 MCG/2ML IVPush PRN (17:30)
== END 2019-10-18 14:19 | disposition home or self-care (01) ==
LOC: ED 13:09
DX: I48.91 Unspecified atrial fibrillation (principal); I10 Essential (primary) hypertension; Z95.0 Presence of cardiac pacemaker; Z85.118 Personal history of other malignant neoplasm of bronchus and lung; Z85.3 Personal history of malignant neoplasm of breast
CPT/HCPCS: 36415; 71045; 80053; 83735; 83880; 84484; 85025; 85610; 92960; 93005; 99152; 99291; J3010